=== PATIENT | male | born 1995 | race Hispanic/Latino ===

== ENCOUNTER 2017-10-02 22:26 | Emergency (ER) | payer SELFPAY ==
[2017-10-02] MEDS ORDERED: FLUCONAZOLE 100 MG TAB ONE (22:42)
[2017-10-02] MEDS ORDERED: AZITHROMYCIN 250 MG TABLET PO ONE (22:43)
[2017-10-02] MEDS ORDERED: CEFTRIAXONE SODIUM 1 GM ONE (22:43)
[2017-10-02] MEDS ORDERED: HYDROXYZINE HCL 25 MG TABLET ONE (22:43)
== END 2017-10-02 23:10 | disposition home or self-care (01) ==
LOC: EDH 22:26
DX: N48.29 Other inflammatory disorders of penis (principal); F12.10 Cannabis abuse, uncomplicated
CPT/HCPCS: 96372; 99284; J0696

== ENCOUNTER 2018-07-31 05:45 | Emergency (ER) | payer SELFPAY ==
[~2018-07-31] VITALS: Ht 177.8 cm; Wt 79.4 kg
[2018-07-31] MEDS ORDERED: DIPHENHYDRAMINE HCL 25 MG CAPSULE ONE ×2 (06:26→06:37)
[2018-07-31] MEDS ORDERED: NAPROXEN 500 MG TABLET ONE (06:26)
[2018-07-31] MEDS ORDERED: NAPROXEN 250 MG TAB ONE (06:37)
== END 2018-07-31 07:21 | disposition home or self-care (01) ==
LOC: EDH 05:45
DX: R51 Headache (principal); F41.9 Anxiety disorder, unspecified; Z88.1 Allergy status to other antibiotic agents; Z72.0 Tobacco use
CPT/HCPCS: 99283; Q0163